=== PATIENT | female | born 1985 | race Two or more races ===

== ENCOUNTER 2019-06-18 17:51 | Emergency (ER) | payer MEDICAID ==
[~2019-06-18] VITALS: Ht 182.9 cm; Wt 109.0 kg
[2019-06-18] MEDS ORDERED: LORazepam 1MG TABLET ONE (18:27)
[2019-06-18] MEDS ORDERED: LORazepam 1MG TABLET PO ONE (18:30)
--- NOTE | 2019-06-18 18:38 | NUR ---
Placed on compliance monitor Ua collected Medicated per emar Updated on estimated poc
[2019-06-18 18:45] LABS: BASOPHILS # (AUTO) 0.16 x10^3/uL (0-0.1); BASOPHILS % (AUTO) 2 % (0-1); EOSINOPHILS # (AUTO) 0.32 x10^3/uL (0-0.4); EOSINOPHILS % (AUTO) 3 % (1-7); LYMPHOCYTES # (AUTO) 2.57 x10^3/uL (1-3.4); LYMPHOCYTES % (AUTO) 26 % (22-44); MD NO; MEAN CORPUSCULAR HEMOGLOBIN 31.4 pg (27.0-34.8); MEAN CORPUSCULAR HGB CONC 33.3 g/dL (32.4-35.8); MEAN CORPUSCULAR VOLUME 94.4 fL (80-100); MEAN PLATELET VOLUME 9.6 fL (7.4-10.4); MONOCYTES # (AUTO) 1.32 x10^3/uL (0.2-0.8); MONOCYTES % (AUTO) 14 % (2-9); NEUTROPHILS # (AUTO) 5.35 x10^3/uL (1.8-6.8); NEUTROPHILS % (AUTO) 55 % (42-75); PLATELET COUNT 292 x10^3/uL (130-400); RED BLOOD COUNT 4.97 x10^6/uL (3.82-5.3); RED CELL DISTRIBUTION WIDTH 13.2 % (9.6-15.2)
[2019-06-18 18:50] LABS: MICROSCOPIC NOT IND
[2019-06-18 18:52] LABS: ALANINE AMINOTRANSFERASE 36 U/L (12-78); ALBUMIN 4.5 g/dL (3.4-5.0); ANION GAP 7 mmol/L (5-15); CALCIUM 9.7 mg/dL (8.5-10.1); CHLORIDE 109 mmol/L (98-107); CREATININE 1.04 mg/dL (0.55-1.02)
[2019-06-18 18:54] LABS: CULTURE INDICATED? NO
--- NOTE | 2019-06-18 18:55 | NUR ---
Report to joshua ASTUDILLO
[2019-06-18 18:57] LABS: ALKALINE PHOSPHATASE 83 U/L (45-117); BILIRUBIN,TOTAL 0.3 mg/dL (0.2-1.0); T4 (THYROXINE) 11.6 mcg/dL (4.8-13.9); TOTAL PROTEIN 8.2 g/dL (6.4-8.2)
--- NOTE | 2019-06-18 18:59 | NUR ---
PT BACK FROM [place]
[2019-06-18 19:15] VITALS: BP 160/91
== END 2019-06-18 21:00 | disposition home or self-care (01) ==
LOC: ED 18:48
DX: G43.C0 Periodic headache syndromes in child or adult, not intractable (principal); I10 Essential (primary) hypertension; F41.1 Generalized anxiety disorder; R00.2 Palpitations; F17.210 Nicotine dependence, cigarettes, uncomplicated
CPT/HCPCS: 36415; 70450; 71045; 80053; 81003; 83735; 84436; 84443; 84703; 85025; 93005; 99284; 99406